=== PATIENT | male | born 2000 | race Caucasian/White ===

== ENCOUNTER 2022-09-01 16:17 | Emergency (ER) | payer OTHER ==
[2022-09-01] MEDS ORDERED: Ketorolac 30 MG/ML SDV IM ONE (17:15)
[2022-09-01] MEDS ORDERED: cefTRIAXone 1 GM, Lidocaine 1% 2.1 ML IM ONE ×2 (17:58)
[2022-09-01] MEDS ORDERED: Take Home: Doxycycline 100 MG Cap, 4 Cap Pack PO ONE (18:02)
== END 2022-09-01 18:25 | disposition home or self-care (01) ==
LOC: DL.ED 16:17
DX: L03.012 Cellulitis of left finger (principal)
CPT/HCPCS: 10060; 10160; 73120-LT; 87070; 87077; 87186; 96372; 99283; A9270-GY; J0696; J1885; J3490